=== PATIENT | male | born 1980 | race Caucasian/White ===

== ENCOUNTER 2016-08-17 17:36 | Emergency (ER) | payer OTHER ==
[~2016-08-17] VITALS: Ht 170.2 cm; Wt 120.0 kg
[~2016-08-17 17:36] MED LIST: HYDR-3533 PO; IBUP-238 PO; PROM25SU8 PO
[2016-08-17 17:41] VITALS: BP 151/97; PULSE 102; RESP 16; TEMP 99.1; O2SAT 96
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
[2016-08-17] MEDS ORDERED: ORPHENADRINE INJ 60 MG/2 ML AMP IM ONE (20:30)
[2016-08-17] MEDS ORDERED: KETOROLAC TROMETHAMINE 60 MG/2 ML (IM) VIAL IM ONE (20:30)
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
[2016-08-17] MEDS ORDERED: CYCL1TAB29 PO (20:40)
[2016-08-17] MEDS ORDERED: IBUP800T23 PO (20:40)
== END 2016-08-17 20:50 | disposition home or self-care (01) ==
LOC: PHED 17:36 → PHEFT 20:50
DX: M79.1 Myalgia (principal); V43.63XA Car passenger injured in collision with pick-up truck in traffic accident, initial encounter; Y93.9 Activity, unspecified; Y92.9 Unspecified place or not applicable; Y99.9 Unspecified external cause status
CPT/HCPCS: 72125; 72128; 72131; 96372; 99284; J1885; J2360